=== PATIENT | female | born 1990 | race Two or more races ===

== ENCOUNTER 2025-05-07 09:24 | Outpatient (CLI) | payer OTHER | END 2025-05-07 09:28 | disposition home or self-care (01) | LOC: SONOGRAMA 09:24 | PROVIDERS: ATTEND Obstetrics & Gynecology Maternal & Fetal Medicine | DX: R10.2 Pelvic and perineal pain (principal); D25.9 Leiomyoma of uterus, unspecified ==

== ENCOUNTER → 2025-06-17 | Day surgery (SDC) | payer OTHER ==
[2025-06-12 11:24] LABS: BASO % 0.7 % (0.1-1.2); EOS # 0.33 (0.04-0.54); EOS % 4.8 % (0.7-7.0); LYMPH # 2.67 (1.18-3.74); LYMPH % 38.5 % (19.3-53.1); MEAN PLATELET VOLUME 10.10 fl (9.4-12.4); MONO # 0.42 (0.24-0.82); MONO % 6.1 % (4.7-12.5); NEUT # 3.46 (1.56-6.13); NEUT % 49.8 % (34.0-71.1); RED CELL DISTRIBUTION WIDTH 13.5 % (11.6-14.4)
[2025-06-12 11:39] LABS: INR 1.09
[2025-06-12 12:00] LABS: ALT/SGPT 15.0 U/L (12-78); AST/SGOT 18.0 U/L (15-37); BILIRUBIN TOTAL 0.62 mg/dL (0.3-1.2); BUN CREA RATIO 11.0 (7.0-25.0); CREATININE SERUM 0.97 mg/dL (0.55-1.02); GFR 66.14; GLOBULINA 3.6 G/DL (2.4-3.5); GLUCOSE FASTING 85.0 mg/dL (65-100); OSMOLALITY SERUM 280.0 MOSM/KG (275-295)
[~2025-06-17] MED LIST: POVIDONE-IODINE 118 ML BOTT TOP ONE
== END | disposition home or self-care (01) ==
LOC: ADM 06-12 09:45 → CIR.AMB 07:00
PROVIDERS: ATTEND Obstetrics & Gynecology Maternal & Fetal Medicine
DX: N84.0 Polyp of corpus uteri (principal)